=== PATIENT | female | born 1970 | race Two or more races ===

== ENCOUNTER 2023-09-24 13:44 | Emergency (ER) | payer SELFPAY ==
[2023-09-24 13:59] VITALS: PULSE 76; RESP 18; BMI 25.7
[2023-09-24 15:30] LABS: BASO % 0.7 % (0-2.0); EOS % 0.5 % (0-4.5); HEMATOCRIT 38.4 % (32.4-45.2); HEMOGLOBIN 12.8 GM/dL (10.7-15.3); LYMPH % 32.4 % (8-40); MCH 30.6 pg (25.7-33.7); MCHC 33.3 g/dl (32.0-36.0); MEAN CELL VOLUME 91.8 fl (80-96); MEAN PLT VOLUME 8.2 fl (7.5-11.1); MONO % 7.2 % (3.8-10.2); NEUT % 59.2 % (42.8-82.8); PLATELET COUNT 299 10^3/uL (134-434); RBC 4.18 M/mm3 (3.60-5.2); RDW 12.9 % (11.6-15.6); WHITE BLOOD COUNT 5.1 K/mm3 (4.0-10.0)
[2023-09-24] MEDS: SODIUM CHLORIDE 0.9% 500 ML INFUS.BAG IV ONE (15:32)
[2023-09-24 15:53] LABS: POTASSIUM 4.4 mmol/L (3.5-5.1)
[2023-09-24 15:55] LABS: ALBUMIN 3.8 g/dl (3.4-5.0); BLOOD UREA NITROGEN 18.4 mg/dL (7-18); CALCIUM 9.6 mg/dL (8.5-10.1)
[2023-09-24 15:58] LABS: CREATININE 0.8 mg/dL (0.55-1.3)
[2023-09-24 16:00] LABS: BILIRUBIN,TOTAL 0.8 mg/dL (0.2-1); TOT PROT 7.3 g/dl (6.4-8.2)
[2023-09-24] MEDS ORDERED: MECLIZINE HCL 25 MG TABLET (FP) ONE (16:56)
[2023-09-24] MEDS: MECLIZINE HCL 25 MG TABLET (FP) PO ONE (17:06)
[2023-09-24 17:08] VITALS: BP 118/84; TEMP 98.8
[2023-09-24] MEDS ORDERED: ACETAMINOPHEN 325 MG TABLET (FP) ONE (17:25)
[2023-09-24] MEDS: ACETAMINOPHEN 500 MG TABLET (FP) PO ONE (17:33)
== END 2023-09-24 17:38 | disposition home or self-care (01) ==
LOC: JER 13:44
DX: R42 Dizziness and giddiness (principal); M79.10 Myalgia, unspecified site; R20.0 Anesthesia of skin; Z20.822 Contact with and (suspected) exposure to COVID-19
CPT/HCPCS: 0241U-QW; 36415; 71046-TC-FY; 80053; 84484; 84703; 85025; 93005; 93010; 99285-25